=== PATIENT | female | born 1980 | race Asian ===

== ENCOUNTER 2018-01-14 12:19 | Inpatient (IN) | payer OTHER ==
[2018-01-14 12:27] VITALS: BMI 28.3
[2018-01-14 13:31] LABS: BASO % 0.4 % (0-2.0); EOS % 0.9 % (0-4.5); HEMATOCRIT 41.5 % (32.4-45.2); HEMOGLOBIN 14.6 GM/dL (10.7-15.3); LYMPH % 28.6 % (8-40); MCH 31.9 pg (25.7-33.7); MCHC 35.2 g/dl (32.0-36.0); MEAN CELL VOLUME 90.7 fl (80-96); MONO % 7.6 % (3.8-10.2); NEUT % 62.5 % (42.8-82.8); PLATELET COUNT 338 K/MM3 (134-434); RBC 4.58 M/mm3 (3.60-5.2); RDW 13.5 % (11.6-15.6); WHITE BLOOD COUNT 5.7 K/mm3 (4.0-10.0)
[2018-01-14 13:55] LABS: AMYLASE 47 U/L (25-115); LIPASE 160 U/L (73-393)
[2018-01-14] MEDS ORDERED: SODIUM CHLORIDE 1,000 ML IV STA (13:55)
[2018-01-14] MEDS ORDERED: ONDANSETRON 4 MG/2 ML VIAL IVPUSH ONE ×2 (13:55→16:20)
--- NOTE | 2018-01-14 13:55 | PDOC ---
History of Present Illness - General Chief Complaint: Pain, Acute Stated Complaint: ABD PAIN Time Seen by Provider: 01/14/18 12:57 History Source: Patient Exam Limitations: No Limitations - History of Present Illness Travel History: No Initial Comments: 01/14/18 13:31 37-year-old female with no past medical history except hypothyroidism presents the ED with complaints of nausea vomiting upper epigastric pain worsened with meals associated with poor intake and generalized weakness for the past 3 days. Patient states went to her PCP who did labs and had noted her to have elevated total bili alone with LFTs and then referred her to see Dr. Reed. Patient spoke to Dr. Reed on the phone who then states to go directly to the ER and began workup. Patient denies fever, chills, chest pain, shortness of breath, change in bowel pattern, change in urine pattern, recent illness, recent sick contacts. 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 approximately 4 weeks ago. 01/14/18 17:33 Timing/Duration: reports: getting worse, intermittent Quality: reports: moderate, cramping Abdominal Pain Onset Location: reports: epigastric Pain Radiation: reports: no radiation Activities at Onset: reports: none Aggravating Factors: improves with: Eating Alleviating Factors: improves with: None Past History - Travel Traveled outside of the country in the last 30 days: No - Past Medical History Allergies/Adverse Reactions: Allergies Allergy/AdvReac Type Severity Reaction Status Date / Time No Known Allergies Allergy Verified 01/14/18 12:27 Home Medications: Ambulatory Orders Levothyroxine [Synthroid -] 50 mcg PO DAILY 01/14/18 COPD: No Thyroid Disease: Yes (hypo) - Immunization History Immunization Up to Date: Yes - Suicide/Smoking/Psychosocial Hx Smoking History: Never smoked Hx Alcohol Use: Yes Drug/Substance Use Hx: No Patient Lives Alone: No Lives with/in: spouse/SO Abd/GI Specific PMHX - Complaint Specific PMHX Gall Bladder Disease: No GERD: No Hepatitis: No Pancreatitis: No GI Ulcer Disease: No Review of Systems - Review of Systems Able to Perform ROS?: Yes Constitutional: Yes: Loss of Appetite, Weakness HEENTM: No: Symptoms Reported Respiratory: No: Symptoms reported Cardiac (ROS): No: Symptoms Reported ABD/GI: Yes: Nausea, Poor Appetite, Poor Fluid Intake, Abdominal cramping : No: Symptoms Reported Musculoskeletal: Yes: Back Pain (mid back) Integumentary: No: Symptoms Reported Neurological: No: Symptoms reported Endocrine: No: Symptoms Reported Hematologic/Lymphatic: No: Symptoms Reported *Physical Exam - Vital Signs Last Vital Signs Temp Pulse Resp BP Pulse Ox 98.2 F 107 H 18 143/111 99 01/14/18 12:23 01/14/18 12:23 01/14/18 12:23 01/14/18 12:23 01/14/18 12:23 - Physical Exam General Appearance: Yes: Nourished, Appropriately Dressed. No: Apparent Distress HEENT: positive: Scleral Icterus (R), Scleral Icterus (L). negative: Pale Conjunctivae Neck: positive: Normal Thyroid, Supple Respiratory/Chest: positive: Lungs Clear, Normal Breath Sounds. negative: Respiratory Distress, Accessory Muscle Use Gastrointestinal/Abdominal: positive: Normal Bowel Sounds, Soft. negative: Distended, Tenderness Extremity: positive: Normal Capillary Refill. negative: Pedal Edema Integumentary: positive: Jaundice Neurologic: positive: Motor Strength 5/5 ED Treatment Course - LABORATORY CBC & Chemistry Diagram: 01/14/18 13:14 01/14/18 13:14 - ADDITIONAL ORDERS Additional order review: 01/14/18 13:14 RBC 4.58 MCV 90.7 MCHC 35.2 RDW 13.5 MPV 7.0 L Neutrophils % 62.5 Lymphocytes % 28.6 Monocytes % 7.6 Eosinophils % 0.9 Basophils % 0.4 Medical Decision Making - Medical Decision Making 01/14/18 13:35 Patient here for nausea vomiting poor appetite and weakness, and jaundice worsening severity of the past few days. Patient concerning for obstruction, mass, infection, and stones. Patient ordered for labs including lipase, amylase IV fluids, Zofran, Protonix and will consider imaging once labs are resulted. 01/14/18 17:37 Laboratory Tests 01/14/18 01/14/18 01/14/18 13:14 13:14 13:14 WBC 5.7 Hgb 14.6 Hct 41.5 Plt Count 338 Neutrophils % 62.5 Sodium 140 Potassium 3.6 Chloride 104 Carbon Dioxide 24 Anion Gap 12 BUN 11 Creatinine 0.7 Random Glucose 116 H Calcium 9.0 Total Bilirubin 8.5 H AST 202 H ALT 687 H Alkaline Phosphatase 269 H Total Amylase 47 Lipase 160 Urine Ketones Urine Blood Urine Nitrite Urine Urobilinogen Urine HCG, Qual 01/14/18 14:00 WBC Hgb Hct Plt Count Neutrophils % Sodium Potassium Chloride Carbon Dioxide Anion Gap BUN Creatinine Random Glucose Calcium Total Bilirubin AST ALT Alkaline Phosphatase Total Amylase Lipase Urine Ketones Trace H Urine Blood Negative Urine Nitrite Negative Urine Urobilinogen 4.0 e.u/dl H Urine HCG, Qual Negative 01/14/18 17:38 Gallbladder ultrasound shows mildly distended gallbladder without evidence of cholelithiasis. Mildly dilated extrahepatic biliary tree measuring common bile duct at 9 mm without obvious obstruction. Case discussed with Dr. Reed is requesting an MRCP and admission to Dr. Brush. Call placed to him and service states to admit to the hospitalist team. Case discussed with hospice and admitted to [facility] inpatient. *DC/Admit/Observation/Transfer Diagnosis at time of Disposition: Total bilirubin, elevated, Jaundice, Elevated LFTs - Discharge Dispostion Admit: Yes - Referrals - Patient Instructions - Post Discharge Activity
[2018-01-14] MEDS ORDERED: ONDANSETRON 4 MG/2 ML VIAL ONE ×2 (13:57→16:23)
[2018-01-14 13:58] LABS: ALBUMIN 3.8 g/dl (3.4-5.0); ANION GAP 12 (8-16); BILIRUBIN,TOTAL 8.5 mg/dL (0.2-1.0); BLOOD UREA NITROGEN 11 mg/dL (7-18); CHLORIDE 104 mmol/L (98-107); CO2 24 mmol/L (21-32); CREATININE 0.7 mg/dL (0.55-1.02); GLUCOSE,RANDOM 116 mg/dL (74-106); POTASSIUM 3.6 mmol/L (3.5-5.1); SGOT/AST 202 U/L (15-37); SODIUM 140 mmol/L (136-145); TOT PROT 7.6 g/dl (6.4-8.2)
[2018-01-14 13:59] LABS: ALK PHOS 269 U/L (45-117)
[2018-01-14 14:10] LABS: SGPT/ALT 687 U/L (12-78)
[2018-01-14 14:18] LABS: URINE APPEARANCE CLEAR; URINE BLOOD NEGATIVE (NEGATIVE); URINE COLOR AMBER; URINE GLUCOSE (UA) NEGATIVE (NEGATIVE); URINE KETONE TRACE (NEGATIVE); URINE LEUK ESTERASE NEGATIVE (NEGATIVE); URINE NITRITE NEGATIVE (NEGATIVE); URINE PROTEIN NEGATIVE (NEGATIVE); URINE UROBILINOGEN 4.0 E.U/dl mg/dL (0.2-1.0)
[2018-01-14 14:22] LABS: HCG,QUALITATIVE URINE NEGATIVE
[2018-01-14] MEDS ORDERED: KETOROLAC TROMETHAMINE 30 MG/1 ML VIAL IVPUSH ONE (16:38)
[2018-01-14] MEDS ORDERED: KETOROLAC TROMETHAMINE 30 MG/1 ML VIAL ONE (16:50)
--- NOTE | 2018-01-14 17:35 | CON.GI ---
Consult Consult Specialty:: GI Reason for Consultation:: Jaundice - History of Present Illness History of Present Illness: Saw patient in the ED, she reports mid epigastric pain associated with nausea and vomiting for 5 days, she saw a GI doctor who wanted to R/O PUD and scheduled a EGD. Patient developed jaundice and persistent epigastric pain worst with meals, nausea and vomiting, and 3-5 lbs weight loss over the last 3 days. She denies heartburn, regurgitation. Occasional NSAID use, no constipation , no diarrhea, no rectal bleed, no melena. Patient reports recent travel to the [facility] from 12/08to 12/24 with family, denies sick contact. IV Zofran, IVF, labs, ultrasound and CT of abdomen and Pelvis done in ED. - History Source History Provided By: Patient, Family Member Limitations to Obtaining History: No Limitations - Alcohol/Substance Use Hx Alcohol Use: Yes - Smoking History Smoking history: Never smoked - Social History Usual Living Arrangement: With Spouse History of Recent Travel: Yes ([facility] 12/08-12/24/17) <Cat Blue - Last Filed: 01/14/18 17:28> Home Medications <Cat Blue - Last Filed: 01/14/18 17:28> <Jakob Reed - Last Filed: 01/14/18 18:48> - Allergies Allergies/Adverse Reactions: Allergies Allergy/AdvReac Type Severity Reaction Status Date / Time No Known Allergies Allergy Verified 01/14/18 12:27 - Home Medications Home Medications: Ambulatory Orders Levothyroxine [Synthroid -] 50 mcg PO DAILY 01/14/18 Review of Systems - Review of Systems Constitutional: reports: Loss of Appetite, Unintentional Wgt. Loss HENT: denies: Difficult Swallowing Cardiovascular: reports: No Symptoms Respiratory: reports: No Symptoms Gastrointestinal: reports: Abdominal Pain, Nausea, Vomiting. denies: Bloating, Constipation, Diarrhea, Dysphagia, Melena, Rectal Bleeding Genitourinary: reports: No Symptoms Neurological: reports: No Symptoms <Cat Blue - Last Filed: 01/14/18 17:28> Physical Exam-GI Vital Signs: Vital Signs Temperature 98.2 F 01/14/18 12:23 Pulse Rate 107 H 01/14/18 12:23 Respiratory Rate 18 01/14/18 12:23 Blood Pressure 143/111 03/08/18 12:23 O2 Sat by Pulse Oximetry (%) 99 01/14/18 12:23 Constitutional: Yes: Well Nourished, No Distress Eyes: Yes: Sclera Icterus. No: WNL, Conjunctiva Clear HENT: Yes: Atraumatic Cardiovascular: Yes: Regular Rate and Rhythm Respiratory: Yes: Regular, CTA Bilaterally Gastrointestinal Inspection: Yes: WNL. No: Ascites, Hernia ...Auscultate: Yes: Normoactive Bowel Sounds ...Palpate: Yes: Soft, Tenderness, Epigastium. No: Firm/Rigid, Guarding, Tenderness, Rebound Neurological: Yes: Alert, Oriented Labs: CBC, BMP 01/14/18 13:14 01/14/18 13:14 <Cat Blue - Last Filed: 01/14/18 17:28> Vital Signs: Vital Signs Temperature 98.2 F 01/14/18 12:23 Pulse Rate 107 H 01/14/18 12:23 Respiratory Rate 18 01/14/18 12:23 Blood Pressure 143/111 01/14/18 12:23 O2 Sat by Pulse Oximetry (%) 99 01/14/18 12:23 Labs: CBC, BMP 01/14/18 13:14 01/14/18 13:14 Hepatic Panel Total Bilirubin 8.5 mg/dL (0.2-1.0) H 01/14/18 13:14 AST 202 U/L (15-37) H 01/14/18 13:14 ALT 687 U/L (12-78) H 01/14/18 13:14 Alkaline Phosphatase 269 U/L (45-117) H 01/14/18 13:14 Albumin 3.8 g/dl (3.4-5.0) 01/14/18 13:14 <Jakob Reed - Last Filed: 01/14/18 18:48> Imaging - Results MRI: Image Reviewed (CBD stone, dilated CBD dialted ballbladder, awaiting official reading) <Jakob Reed - Last Filed: 01/14/18 18:48> Problem List - Problems (1) Obstructive jaundice Assessment/Plan: dilated CBD R> for ERCP,pt seen by Dr Reed, risk of pancretitis and bleeding post ERCP was explained Code(s): K83.8 - OTHER SPECIFIED DISEASES OF BILIARY TRACT <Jakob Reed - Last Filed: 01/14/18 18:48>
--- NOTE | 2018-01-14 17:51 | HP ---
Admitting History and Physical - Admission Chief Complaint: abd pain History of Present Illness: HPI: This is a 37 year old female with hypothyroidism who presented to the ED with abdominal pain. For five days pt has experienced nausea and vomiting. Last week she was seen in another ED for same symptoms and was sent home with gastroenteritis. Later she saw a GI specialist in the city who scheduled her for an upper endoscopy to r/o ulcers. When she came home her noted yellowing to her eyes and she called her pcp who did labs. On evaluation of labs the pcp referred her to Dr. Reed, elevated LFTs and total bili. Dr. Reed suggested the pt go to the ED for evaluation and presented after the storm. In the last 3 days abdominal pain worsened with meals, she became jaundiced and lost ~5 lbs with tea colored urine. PT sent to ER for MRCP, stone seen Currently she has vomited twice in the ED and still feel nauseated. Denies abd pain to palpation. denies chest pain, chills, fever, sob. History Source: Patient, Medical Record Limitations to Obtaining History: No Limitations - Past Medical History Endocrine: Yes: Hypothyroidism - Smoking History Smoking history: Never smoked - Alcohol/Substance Use Hx Alcohol Use: Yes - Social History ADL: Independent Occupation: nurse History of Recent Travel: Yes [facility] weeks ago ) Home Medications - Allergies Allergies/Adverse Reactions: Allergies Allergy/AdvReac Type Severity Reaction Status Date / Time No Known Allergies Allergy Verified 01/14/18 12:27 - Home Medications Home Medications: Ambulatory Orders Levothyroxine [Synthroid -] 50 mcg PO DAILY 01/14/18 Review of Systems - Review of Systems Constitutional: reports: No Symptoms Eyes: reports: No Symptoms HENT: reports: No Symptoms Neck: reports: No Symptoms Cardiovascular: reports: No Symptoms Respiratory: reports: No Symptoms Gastrointestinal: reports: Abdominal Pain, Nausea, Vomiting Genitourinary: reports: No Symptoms Musculoskeletal: reports: No Symptoms Integumentary: reports: No Symptoms Neurological: reports: No Symptoms Endocrine: reports: No Symptoms Hematology/Lymphatic: reports: No Symptoms Psychiatric: reports: No Symptoms Physical Examination Vital Signs: Vital Signs Temperature 98.2 F 01/14/18 12:23 Pulse Rate 107 H 01/14/18 12:23 Respiratory Rate 18 01/14/18 12:23 Blood Pressure 143/111 01/14/18 12:23 O2 Sat by Pulse Oximetry (%) 99 01/14/18 12:23 Labs: CBC, BMP 01/14/18 13:14 01/14/18 13:14 Imaging - Results Ultrasound: Report Reviewed (mildy distended GB w/o evidence cholelithiasis, mildly dialted extrahepatic biliary tree w/o obvious obstruction) MRI: Pending Assessment/Plan Assessment: 37 year old female admitted with abdominal pain Plan: 1. Abdominal pain - MRCP shows stone on read with Dr. Reed - EGD Tomorrow - NPO - Start ceftriaxone daily - Cont IVF - D/W Dr. Reed 2. Hypothyroidism - Synthroid 50mcg daily 3. DVT - SCDs Visit type - Emergency Visit Emergency Visit: Yes ED Registration Date: 01/14/18 Care time: The patient presented to the Emergency Department on the above date and was hospitalized for further evaluation of their emergent condition. - New Patient This patient is new to me today: Yes Date on this admission: 01/14/18 - Critical Care Critical Care patient: No Hospitalist Screening - Colonoscopy Questionnaire Colonoscopy Questionnaire: Colonoscopy Questionnaire - Patient: 50 - 75 years old and never had a screening colonoscopy: Unknown History of colon or rectal polyps, or CA: Unknown History of IBD, Crohn's disease or UC: Unknown History of abdominal radiation therapy as a child: Unknown - Relative: 1 with colon or rectal CA, or polyps at age 60 or younger: Unknown Colon or rectal CA diagnosed at age 45 or younger: Unknown Multiple relatives with colon or rectal CA: Unknown - Outcome: Screening Result: Negative Screen
[2018-01-14] MEDS ORDERED: DEXTROSE 5%-NORMAL SALINE 1,000 ML IV SCH (18:45)
--- NOTE | 2018-01-14 18:55 | PN ---
Progress Note (short form) - Note Progress Note: patient seen and examined, agree with planned ERCP, risk iof pancreaitis and bleeding was discussed with the patient and her husbamd R> IV hydration Iv Ceftriaxone Problem List - Problems (1) Obstructive jaundice Code(s): K83.8 - OTHER SPECIFIED DISEASES OF BILIARY TRACT
[2018-01-14] MEDS ORDERED: MORPHINE SULFATE 10 MG/1 ML *VIAL IVPUSH PRN (19:04)
[2018-01-14] MEDS ORDERED: ONDANSETRON 4 MG/2 ML VIAL IVPUSH PRN (19:04)
[2018-01-14] MEDS ORDERED: CEFTRIAXONE 1 G/50 ML PREMIX 50 ML IVPB ONE (20:00)
[2018-01-15] MEDS ORDERED: LEVOTHYROXINE NA 50 MCG TABLET (FP) PO SCH (07:00)
[2018-01-15 08:33] LABS: BASO % 0.6 % (0-2.0); EOS % 1.7 % (0-4.5); HEMATOCRIT 36.7 % (32.4-45.2); HEMOGLOBIN 12.8 GM/dL (10.7-15.3); LYMPH % 30.7 % (8-40); MCH 31.9 pg (25.7-33.7); MCHC 34.9 g/dl (32.0-36.0); MEAN CELL VOLUME 91.3 fl (80-96); MEAN PLT VOLUME 7.2 fl (7.5-11.1); MONO % 9.3 % (3.8-10.2); NEUT % 57.7 % (42.8-82.8); PLATELET COUNT 304 K/MM3 (134-434); RBC 4.02 M/mm3 (3.60-5.2); RDW 13.3 % (11.6-15.6); WHITE BLOOD COUNT 3.9 K/mm3 (4.0-10.0)
[2018-01-15 08:55] LABS: CHLORIDE 109 mmol/L (98-107); SODIUM 141 mmol/L (136-145)
[2018-01-15 09:02] LABS: ALBUMIN 3.3 g/dl (3.4-5.0); ALK PHOS 217 U/L (45-117); ANION GAP 7 (8-16); BILIRUBIN,TOTAL 7.3 mg/dL (0.2-1.0); BLOOD UREA NITROGEN 8 mg/dL (7-18); CALCIUM 7.9 mg/dL (8.5-10.1); CO2 25 mmol/L (21-32); CREATININE 0.6 mg/dL (0.55-1.02); GLUCOSE,RANDOM 114 mg/dL (74-106); MAGNESIUM 2.2 mg/dL (1.8-2.4); PHOSPHOROUS 2.6 mg/dL (2.5-4.9); SGOT/AST 162 U/L (15-37); TOT PROT 6.2 g/dl (6.4-8.2)
[2018-01-15 09:15] LABS: SGPT/ALT 553 U/L (12-78)
[2018-01-15] MEDS ORDERED: CEFTRIAXONE 1 G/50 ML PREMIX 50 ML IVPB SCH (10:00)
[2018-01-15] MEDS ORDERED: ENOXAPARIN NA (PORCINE) 40 MG/0.4 ML DISP.SYRIN SQ SCH (10:00)
--- NOTE | 2018-01-15 11:18 | PN ---
Physical Exam: SUBJECTIVE: Patient seen and examined. Reports feeling better, denies further vomiting and pain, just hunger pain. OBJECTIVE: Vital Signs Period Temp Pulse Resp BP Sys/Trejo Pulse Ox Last 24 Hr 98.1 F-98.7 F 64-107 16-20 107-143/69-111 98-100 PE Neuro: alert, awake, cn 2-12intact Pulm: CTAB CV: s1 s2 rrr no mrg Abd: S nt nd + bs Ext: warm no le edema Laboratory Results - last 24 hr 01/14/18 01/14/18 01/15/18 14:00 18:55 07:30 WBC 3.9 L D RBC 4.02 Hgb 12.8 D Hct 36.7 MCV 91.3 MCH 31.9 MCHC 34.9 RDW 13.3 Plt Count 304 MPV 7.2 L Neutrophils % 57.7 Lymphocytes % 30.7 Monocytes % 9.3 Eosinophils % 1.7 D Basophils % 0.6 Sodium Potassium Chloride Carbon Dioxide Anion Gap BUN Creatinine Creat Clearance w eGFR Random Glucose Calcium Phosphorus Magnesium Total Bilirubin AST ALT Alkaline Phosphatase Total Protein Albumin Total Amylase Lipase TSH 0.74 Urine Color [place] Urine Appearance Clear Urine pH 5.0 Ur Specific [place] 1.024 Urine Protein Negative Urine Glucose (UA) Negative Urine Ketones Trace H Urine Blood Negative Urine Nitrite Negative Urine Bilirubin 4.0 Urine Urobilinogen 4.0 e.u/dl H Ur Leukocyte Esterase Negative Urine HCG, Qual Negative 01/15/18 07:30 WBC RBC Hgb Hct MCV MCH MCHC RDW Plt Count MPV Neutrophils % Lymphocytes % Monocytes % Eosinophils % Basophils % Sodium 141 Potassium 4.0 Chloride 109 H Carbon Dioxide 25 Anion Gap 7 L BUN 8 Creatinine 0.6 Creat Clearance w eGFR > 60 Random Glucose 114 H Calcium 7.9 L Phosphorus 2.6 Magnesium 2.2 Total Bilirubin 7.3 H AST 162 H ALT 553 H Alkaline Phosphatase 217 H Total Protein 6.2 L Albumin 3.3 L Total Amylase Lipase TSH Urine Color Urine Appearance Urine pH Ur Specific [place] Urine Protein Urine Glucose (UA) Urine Ketones Urine Blood Urine Nitrite Urine Bilirubin Urine Urobilinogen Ur Leukocyte Esterase Urine HCG, Qual Active Medications Generic Name Dose Route Start Last Admin Trade Name Freq PRN Reason Stop Dose Admin Dextrose/Sodium Chloride 1,000 mls @ 125 mls/hr 01/14/18 18:45 01/14/18 21:53 D5-Ns - IV 01/17/18 03:44 125 mls/hr ASDIR THADDEUS Administration CEFTRIAXONE 1 G/50 ML PREMIX 50 mls @ 100 mls/hr 01/15/18 10:00 01/15/18 09: 15 Ceftriaxone 1 Gm-D5w Bag IVPB 100 mls/hr DAILY THADDEUS Administration Levothyroxine Sodium 50 mcg 01/15/18 07:00 01/15/18 06:58 Synthroid - PO 50 mcg DAILY@0700 THADDEUS Administration Morphine Sulfate 1 mg 01/14/18 19:04 Morphine Injection - IVPUSH Q4H PRN PAIN LEVEL 1-5 Ondansetron HCl 4 mg 01/14/18 19:04 Zofran Injection IVPUSH Q6H PRN NAUSEA AND/OR VOMITING MRCP: dilated CBD measure 10mm dilated intrahepatic bile duct, 4mm round filling defect Assessment: 37 year old female admitted with abdominal pain Plan: 1. Choledocholithiasis, Transaminitis/elevated alk phos - Levels down trended - ERCP today - NPO - Ceftriaxone 1gm daily (day 2) - Cont IVF per GI - GI seeing 2. Hypothyroidism - Synthroid 50mcg daily 3. DVT - SCDs Visit type - Emergency Visit Emergency Visit: Yes ED Registration Date: 01/14/18 Care time: The patient presented to the Emergency Department on the above date and was hospitalized for further evaluation of their emergent condition. - New Patient This patient is new to me today: No - Critical Care Critical Care patient: No
[2018-01-15] MEDS ORDERED: PROPOFOL 20 ML ONE (14:53)
[2018-01-15] MEDS ORDERED: ROCURONIUM BROMIDE 50 MG/5 ML VIAL ONE (14:53)
[2018-01-15] MEDS ORDERED: ONDANSETRON 4 MG/2 ML VIAL ONE (14:54)
[2018-01-15] MEDS ORDERED: INDOMETHACIN 50 MG RECTAL SUPPOSITORY PR ONE (15:01)
[2018-01-15] MEDS ORDERED: LACTATED RINGERS SOLUTION 1,000 ML IV SCH (16:00)
[2018-01-15] MEDS ORDERED: EPINEPHrine 1:10,000 (P-F SYR) 1 MG/10 ML DISP.SYRIN ONE (16:02)
[2018-01-15] MEDS ORDERED: ONDANSETRON 4 MG/2 ML VIAL IVPUSH PRN (16:19)
[2018-01-15] MEDS ORDERED: MORPHINE SULFATE 10 MG/1 ML *VIAL IVPUSH PRN (16:19)
[2018-01-15] MEDS: DEXTROSE 5%-NORMAL SALINE 1,000 ML IV SCH (19:00)
[2018-01-15] MEDS: METOCLOPRAMIDE HCL INJECTION 10 MG/2 ML VIAL IVPUSH SCH (23:14)
[2018-01-16] MEDS: DEXTROSE 5%-NORMAL SALINE 1,000 ML IV SCH (02:14)
[2018-01-16] MEDS ORDERED: LEVOTHYROXINE NA 50 MCG TABLET (FP) PO SCH (07:00)
[2018-01-16 07:36] VITALS: TEMP 97.9
[2018-01-16 08:29] LABS: ALBUMIN 3.1 g/dl (3.4-5.0); ANION GAP 10 (8-16); CALCIUM 8.1 mg/dL (8.5-10.1); CHLORIDE 109 mmol/L (98-107); CO2 24 mmol/L (21-32); GLUCOSE,RANDOM 100 mg/dL (74-106); POTASSIUM 3.7 mmol/L (3.5-5.1); SODIUM 143 mmol/L (136-145)
[2018-01-16 08:34] LABS: ALK PHOS 201 U/L (45-117); BILIRUBIN,TOTAL 6.3 mg/dL (0.2-1.0); BLOOD UREA NITROGEN 4 mg/dL (7-18); CREATININE 0.6 mg/dL (0.55-1.02); SGOT/AST 114 U/L (15-37); TOT PROT 6.3 g/dl (6.4-8.2)
[2018-01-16 09:12] LABS: SGPT/ALT 477 U/L (12-78)
--- NOTE | 2018-01-16 09:47 | DS ---
Physical Exam: SUBJECTIVE: Patient seen and examined at the bedside. feels well, no nausea, no vomiting, one episode of loose watery stools this morning. Tolerated regular diet OBJECTIVE: Labs downtrending Patient to follow up with Dr. Reed for further testing/procedures Vital Signs Period Temp Pulse Resp BP Sys/Trejo Pulse Ox Last 24 Hr 97.9 F-98.8 F 55-74 16-20 100-122/61-86 96-100 PHYSICAL EXAM GENERAL: The patient is awake, alert, and fully oriented, in no acute distress. HEAD: Normal with no signs of trauma. EYES: PERRL, extraocular movements intact, sclera anicteric, conjunctiva clear. ENT: Ears normal, nares patent, oropharynx clear without exudates, moist mucous membranes. NECK: Trachea midline, full range of motion, supple. LUNGS: Breath sounds equal, clear to auscultation bilaterally, no wheezes, no crackles, no accessory muscle use. HEART: Regular rate and rhythm, S1, S2 without murmur, rub or gallop. ABDOMEN: Soft, nontender, nondistended, normoactive bowel sounds, NEUROLOGICAL: Normal speech, gait not observed. PSYCH: Normal mood, normal affect. SKIN: Warm, dry, normal turgor, no rashes or lesions noted. LABS Laboratory Results - last 24 hr 01/16/18 07:50 Sodium 143 Potassium 3.7 Chloride 109 H Carbon Dioxide 24 Anion Gap 10 BUN 4 L Creatinine 0.6 Creat Clearance w eGFR > 60 Random Glucose 100 Calcium 8.1 L Total Bilirubin 6.3 H AST 114 H ALT 477 H Alkaline Phosphatase 201 H Total Protein 6.3 L Albumin 3.1 L HOSPITAL COURSE: Date of Admission:01/14/18 Date of Discharge: 01/16/18 Patient is a 37 year old female with a significant past medical history of hypothyroidism. She presented to the ED on 01/14/2018 with complaints of nausea, vomiting, weight loss, and epigastric pain. Her upper epigastric pain worsened with meals and notes that she had poor PO intake and felt weaker. She saw her PCP and a referral was sent for her to see Dr. Reed who instructed patient to go to the ER for further workup. GI: Abdominal pain, resolved Choledocholithiasis, Transaminitis wih elevated alk phos and hyperbilirumia Obstructive jaundice pt s/p ERCP 01/15/2018 with stone extraction AST/ALT/ALK phos/Bilirubin levels are down trending Received 3 doses of IV Ceftriaxone during admission Tolerated regular diet today, no nausea, no vomiting Abdomen soft, non distended, + bowel sounds GI follow up outpatient PCP follow up outpatient Disposition: discharge home with GI follow up. full code. Minutes to complete discharge: 60 Discharge Summary Reason For Visit: JAUNDICE Current Active Problems Obstructive jaundice (Acute) Condition: Improved - Instructions Diet, Activity, Other Instructions: Mrs. Gray: As discussed, please return to the ER if you have any further vomiting, nausea, abdominal pain or unable to tolerate meals. Please see your primary care physician for monitoring of your lab work. I can be reached between 7am and 7pm today and tomorrow if you have questions. Thank you for allowing us to care for you. [facility] @ [facility] [phone] Referrals: Marcelo Carlisle [Primary Care Provider] - Jakob Reed MD [Staff Physician] - 1 Week (please call for a follow up appointment) Disposition: HOME - Home Medications Comprehensive Discharge Medication List: Ambulatory Orders Levothyroxine [Synthroid -] 50 mcg PO DAILY 01/14/18 This patient is new to me today: Yes Date on this admission: 01/16/18 Emergency Visit: No Critical Care patient: No - Discharge Referral Referred to [facility] Med [facility] No
[2018-01-16] MEDS ORDERED: CEFTRIAXONE 1 G/50 ML PREMIX 50 ML IVPB SCH (10:00)
[2018-01-16] MEDS: METOCLOPRAMIDE HCL INJECTION 10 MG/2 ML VIAL IVPUSH SCH (10:59)
[2018-01-16 11:06] VITALS: BP 121/89; PULSE 80
== END 2018-01-16 11:30 | disposition home or self-care (01) | DRG 445 ==
LOC: JER 12:19 → JERBED 17:39 → J5S 19:24
PROVIDERS: ADMIT Internal Medicine; ATTEND Nurse Practitioner Family
DX: K80.50 Calculus of bile duct without cholangitis or cholecystitis without obstruction (principal); R17 Unspecified jaundice; N32.89 Other specified disorders of bladder; E03.9 Hypothyroidism, unspecified; R79.89 Other specified abnormal findings of blood chemistry; R74.0 Nonspecific elevation of levels of transaminase and lactic acid dehydrogenase [LDH]
CPT/HCPCS: 36415; 74181-TC; 74330-TC; 76000-TC-FY; 76705-TC; 80053; 81003; 82150; 83690; 83735; 84100; 84443; 84703; 85025; 94760; 97116-GP; 97161-GP; 99283-25; J7030